=== PATIENT | male | born 1940 | race Caucasian/White ===

== ENCOUNTER 2021-04-30 19:00 | Emergency (ER) | payer MEDICARE, SELFPAY ==
[2021-04-30 19:51] VITALS: BP 209/96; PULSE 91; RESP 18; TEMP 36.5; O2SAT 97; BMI 22.8
--- NOTE | 2021-04-30 21:22 | ED.WOUNDLAC ---
HPI - Wound/Laceration General Chief Complaint: Wound/Laceration Stated Complaint: wound check Time Seen by Provider: 04/30/21 20:39 Source: patient and family Mode of arrival: ambulatory Limitations: no limitations History of Present Illness HPI narrative: Patient has skin cancer which was removed by [employer] district clerk a week ago sutures were removed 4 days ago now patient complaining of slight of oozing at the site where biopsy was taken patient not on any blood thinner Related Data Allergies Allergy/AdvReac Type Severity Reaction Status Date / Time SEASONAL ALLERGIES Allergy Mild RUNNY NOSE Uncoded 05/15/20 16:48 COUGH Review of Systems Review of Systems: Yes all other systems are reviewed and are negative PMFSH Past Medical History Attestation statement: The following information was validated with the patient. Medical History (Updated 05/01/21 @ 00:02 by Pérez Denney) COPD (chronic obstructive pulmonary disease) HTN (hypertension) Skin cancer Surgical History (Updated 04/30/21 @ 19:54 by Mariajose Jessica RN) H/O heart surgery Social History Social History Advance Directives: No Physical Exam Vital Signs: Vital Signs: Last Vital Signs Temp 97.7 F 04/30/21 19:51 Pulse 91 04/30/21 19:51 Resp 18 04/30/21 19:51 BP 209/96 H 04/30/21 19:51 Pulse Ox 97 04/30/21 19:51 Body Mass Index 22.8 Const: General: no acute distress and well developed HENMT: Head: Yes normocephalic Head images: 1. Slight oozing from the biopsy, Dermabond was applied and bleeding stopped Discharge Plan Discharge Clinical Impression: Avulsion of skin Patient Disposition: Home, Self-Care Instructions: Skin Avulsion (ED) Additional Instructions: Local care as advised Follow-up with federal district clerk Interventions: ED Discharge Assessment Last Done: 04/30/21 22:27 Discharge Date/Time: 04/30/21 21:29
== END 2021-04-30 21:29 | disposition home or self-care (01) ==
PROVIDERS: Emergency Provider Internal Medicine; PCP Family Medicine
DX: S08.0XXA Avulsion of scalp, initial encounter (principal); G44.309 Post-traumatic headache, unspecified, not intractable; X58.XXXA Exposure to other specified factors, initial encounter; Y93.9 Activity, unspecified; Y92.9 Unspecified place or not applicable; Y99.9 Unspecified external cause status
CPT/HCPCS: 99284